=== PATIENT | male | born 1980 | race Native Hawaiian/Other Pacific Islander ===

== ENCOUNTER 2020-11-25 10:30 | Emergency (ER) | payer OTHER ==
[~2020-11-25] VITALS: Ht 190.5 cm; Wt 109.0 kg
[2020-11-25 11:13] LABS: PLATELET COUNT 277 K/uL (142-355)
[2020-11-25 11:23] LABS: POTASSIUM 4.4 mmol/L (3.6-5.2); SODIUM 137 mmol/L (136-145)
[2020-11-25 11:26] LABS: PARTIAL THROMBOPLASTIN TIME 26.8 SECONDS (24.5-33.6)
[2020-11-25 12:20] VITALS: BP 124/78; TEMP 99.2
== END 2020-11-25 12:20 | disposition home or self-care (01) ==
LOC: ED 10:30
PROVIDERS: Hospitalist
DX: R07.89 Other chest pain (principal)
CPT/HCPCS: 80053; 82550; 83880; 84484; 85027; 85379; 85610; 85730; 93005; 96365; 96375; 99284; J0696; J1885

== ENCOUNTER 2021-12-20 12:44 | Emergency (ER) | payer OTHER ==
[~2021-12-20] VITALS: Ht 190.5 cm; Wt 108.9 kg
[2021-12-20 12:47] VITALS: TEMP 98.2
[2021-12-20 13:13] VITALS: BP 149/88
== END 2021-12-20 13:13 | disposition home or self-care (01) ==
LOC: ED 12:44
DX: K40.90 Unilateral inguinal hernia, without obstruction or gangrene, not specified as recurrent (principal)
CPT/HCPCS: 99282